=== PATIENT | female | born 1985 | race Caucasian/White ===

== ENCOUNTER 2018-08-23 23:57 | Emergency (ER) | payer OTHER ==
[~2018-08-23] VITALS: Ht 165.1 cm; Wt 98.0 kg
--- OUTSIDE RECORDS SUMMARY | ~2018-08-23 | XMS | Clinical Summary ---
Demographics + + + | Address | [address] | | | [place] [address] | + + + | Home Phone | | + + + | Preferred Language | Unknown | + + + | Marital Status | Single | + + + | Mu-Ism Affiliation | Unknown | + + + | Race | Unknown | + + + | Ethnic Group | Unknown | + + + Author + + + | Author | [facility] | | | and [place] | + + + | Organization | [facility] | | | and [place] | + + + | Address | Unknown | + + + | Phone | Unavailable | + + + Care Team Providers + +------+ + | Care Dry Paste Supervisor Name | Role | Phone | + +------+ + | Michelle Matt | PP | | | PA | | | + +------+ + Allergies Not on File Medications Not on file Active Problems Not on file Social History + +-------+ +--------+------+ | Tobacco Use | Types | Packs/Day | Years | Date | | | | | Used | | + +-------+ +--------+------+ | Never Assessed | | | | | + +-------+ +--------+------+ + + + | Sex Assigned at | Date Recorded | | | | + + + | Not on file | | + + + + + + + | Job Start Date | Occupation | Industry | + + + + | Not on file | Not on file | Not on file | + + + + + + + + | Travel History | Travel Start | Travel End | + + + + + + | No recent travel history available. | + + Plan of Treatment +--------+---------+ + + + | Date | Type | Specialty | Care Team | Description | +--------+---------+ + + + | 09/23/ | Office | | Dony Alcantar, | | | 2019 | Visit | | [address] | | | | | | [place] | | | | | | [address] | | | | | | | | +--------+---------+ + + + | 11/16/ | Office | | Guero Cobos MD | | | 2019 | Visit | | [address] | | | | | | [place] | | | | | | [address] | | | | | | | | +--------+---------+ + + + + + + + + | Health Maintenance | Due Date | Last Done | Comments | + + + + + | Vaccine: | | | | | Dtap/Tdap/Td (1 - | 6 | | | | Tdap) | | | | + + + + + | Cervical Cancer | | | | | Screening (Pap) | 7 | | | + + + + + | Vaccine: Influenza | | | | | (Season Ended) | 9 | | | + + + + + Results Not on filefrom Last 3 Months Insurance + +--------+ +--------+ +---------+--------+ | Payer | Benefi | Subscriber | Effect | Phone | Address | Type | | | t Plan | ID | alfredo | | | | | | / | | Dates | | | | | | Group | | | | | | + +--------+ +--------+ +---------+--------+ | [employer] | MODA | [id number] | | [phone] | | Medica | | MEDICAID HMO | HEALTH | | 018-Pr | 1 | | id | | | MDCD | | esent | | | | | | [place]MO [place] | | | | | | + +--------+ +--------+ +---------+--------+ | [employer] | MODA | [id number] | | [phone] | | Medica | | MEDICAID HMO | HEALTH | | 019-Pr | 1 | | id | | | MDCD | | esent | | | | | | [place]MO [place] | | | | | | + +--------+ +--------+ +---------+--------+ + +--------+ +--------+ + + | Guarantor Name | Accoun | Relation to | Date | Phone | Billing Address | | | t Type | Patient | of | | | | | | | | | | + +--------+ +--------+ + + | Giulia Trujillo | Person | Self | [birth year] | [address] | | | al/Fam | | 1985 | [phone] | [place] [address] | | | nadia | | | 0 (Home) | | + +--------+ +--------+ + + | Giulia Trujillo | Person | Self | [birth year] | [address] | | | mook/Vahe | | 1985 | [phone] | [place] [address] | | | nadia | | | 0 (Home) | | + +--------+ +--------+ + + Advance Directives Patient has advance care planning documents on file. For more information, please contact:[facility] [place] [address]"
--- OUTSIDE RECORDS SUMMARY | ~2018-08-23 | XMS | Clinical Summary ---
Demographics + + + | Address | [address] | | | [place] [address] | + + + | Home Phone | | + + + | Preferred Language | Unknown | + + + | Marital Status | Single | + + + | Druze Affiliation | Unknown | + + + | Race | Unknown | + + + | Ethnic Group | Unknown | + + + Author + + + | Author | [facility] | | | and [place] | + + + | Organization | [facility] | | | and [place] | + + + | Address | Unknown | + + + | Phone | Unavailable | + + + Care Team Providers + +------+ + | Care Healthcare Science Specialist Name | Role | Phone | + [...] [place] | | | | | | [phone] | | | | | | | | +--------+---------+ + + + | 11/16/ | Office | | Guero Cobos MD | | | 2019 | Visit | | [address] | | | | | | [place] | | | | | | [address] | | | | | | | [...] | [employer] | MODA | [id number] | | [phone] | | Medica | | MEDICAID HMO | HEALTH | | 018-Pr | 1 | | id | | | MDCD | | esent | | | | | | [place]MO [place] | | | | | | + +--------+ +--------+ +---------+--------+ | [employer] | MODA | [id number] | | [phone] | | Medica | | MEDICAID HMO [...] | 1985 | [phone] | [place] [address] | | | nadia | | | 0 (Home) | | + +--------+ +--------+ + + | Giulia Trujillo | Person | Self | [birth year] | [address] | | | mook/Vahe | | 1985 | [phone] | [place] [address] | | | nadia | | | 0 (Home) | | + +--------+ +--------+ + + Advance Directives Patient has advance care planning documents on file. For more information, please contact:[facility] [place] [address]"
[~2018-08-23 23:57] MED LIST: BENADRYL ALLERG25 MG PO; BUTALB-ACETAMI1 EACH PO; PHENTERMINE HCL30 MG PO; PREDNISONE20 MG PO; PROPRANOLOL HCL40 MG PO; RIZATRIPTAN10 MG PO
--- OUTSIDE RECORDS SUMMARY | 2018-08-24 | XMS ---
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 Mala has no Care Guidelines for this patient. Nicho VISIT COUNT (12 MO.) 1 ABDOUL Forrest TOTAL 1 NOTE: Visits indicate total known visits. ED/UCC VISIT TRACKING (12 MO.) 08/23/2018 23:57 ABDOUL [place] TYPE: Emergency COMPLAINT: - MIGRAINE INPATIENT VISIT TRACKING (12 MO.) No inpatient visits to display in this time frame [id number]
== END 2018-08-24 01:25 | disposition home or self-care (01) ==
LOC: ED 23:57
DX: R51 Headache (principal); Z90.49 Acquired absence of other specified parts of digestive tract
CPT/HCPCS: 96374; 96375; 99283-25; J1200; J1885; J2765; J7030

== ENCOUNTER 2020-05-15 05:50 | Day surgery (SDC) | payer OTHER ==
[~2020-05-15] VITALS: Ht 165.1 cm; Wt 104.5 kg
[~2020-05-15 05:50] MED LIST changes: +BOTOX100 UNITS IM; +HYDROCODON-ACE1 EA10 PO
--- NOTE | 2020-05-15 08:42 | NUR ---
PT ALERT, ORIENTED AND SUPPORTED BY HER CATALINO. PT SEEMS INFORMED, ALL QUESTIONS ASKED ANSWERED. PT STATED SHE WAS HAVING A HARD TIME STAYING AWAKE GAVE BLESSING AND WILL FOLLOW
--- NOTE | 2020-05-15 09:26 | NUR ---
LE 0815: PATIENT IS IN BED. SPOUSE IS AT BEDSIDE. MOUTH SWABS AT BEDSIDE TABLE. NO OTHER ASSISTANCE NEEDED AT THIS TIME. CALL LIGHT IS WITHIN REACH.
--- NOTE | 2020-05-15 09:27 | NUR ---
LE 0915: PATIENT STATED NO DESIRE TO VOID AT THIS TIME. MOUTH SWABS NEXT TO BEDSIDE TABLE. NO OTHER ASSISTANCE AT THIS TIME. CALL LIGHT WITHIN REACH.
[2020-05-15] MEDS ORDERED: DICLOFENAC SODI75 MG PO (11:26)
[2020-05-15] MEDS ORDERED: HYDROCODON-ACE1 EA11 PO (11:26)
--- NOTE | 2020-05-15 11:32 | NUR ---
05/15/20 1132 Soraya Srivastava 1113- PT TO PACU IN SUPINE POSITION. EYES CLOSED. DOES NOT RESPOND TO VERBAL STIMULI. BREATHING EASY AND UNLABORED. SPO2 >95% ON 6 L O2 VIA SIMPLE MASK. REPORT RECEIVED FROM SEBASTIAN 1119- PT RESPONDS TO VOICE. NODS HEAD INDICATING SHE IS COMFORTABLE. PT UNABLE TO WIGGLE TOES, PULSES 3+ AND CAP REFIL BRISK TO BOTH LOWER EXTREMITIES. BREATHING EASY AND UNLABORED. SPO2 >95%. 1129- PT TALKING WITH MD AT BEDSIDE. BREATHING EASY AND UNLAOBRED. SPO2 >95%. O2 TITRATED DOWN TO ROOM AIR. PT DENIES PAIN AND NAUSEA AT THIS TIME. CRYO CUFF APPLIED AND EXTREMITY ELEVATED.
--- NOTE | 2020-05-15 12:09 | NUR ---
PT ARRIVES TO TREATMENT ROOM FROM PACU AWAKE AND ALERT. PT DENIES ANY PAIN IN LEFT KNEE. PT ABLE TO MOVE TOES ON LEFT SIDE, UNABLE TO MOVE RIGHT LEG AT THIS TIME. PT DENIES ANY NAUSEA. SPOUSE AT BEDSIDE. DC CRITERIA EXPLAINED, SPOUSE PROVIDED PAIN PRESCRIPTION. CALL LIGHT WITHIN REACH.
--- NOTE | 2020-05-15 13:04 | NUR ---
PT IS REPORTING NO PAIN AT THIS TIME. SHE IS ABLE TO MOVE AND WIGGLE HER RIGHT LEG, SHE DOES NOT FEEL WHEN THE BOTTOM OF HER FOOT IS TOUCHED OR TOE SQUEEZED YET. SHE WOULD LIKE SOME CRACKERS. CALL LIGHT WITHIN REACH. NO ADDITIONAL NEEDS AT THIS TIME.
--- NOTE | 2020-05-15 14:07 | NUR ---
PT REPORTS FEELING IN THE BOTTOM OF HER RIGHT FOOT, STATING IT FEELS LIKE HER LEG FELL ASLEEP AND IS WAKING UP. USING A SECOND RN THE PT IS STOOD AT THE BEDSIDE FOR THE FIRST TIME, SHE ISN'T ABLE TO HOLD HER WEIGHT. SHE REPORTS THAT SHE FEELS LIKE HER LEG ISN'T STRONG ENOUGH TO SUPPORT HER. SHE IS HELPED BACK IN TO BED. SHE IS EDUCATED TO USE HER CALL LIGHT IF SHE NEEDS TO GET UP AND USE THE RESTROOM. CALL LIGHT WITHIN REACH. TOLERATING WATER AND CRACKERS. NO ADDITIONAL NEEDS AT THIS TIME.
--- NOTE | 2020-05-15 15:08 | NUR ---
PATIENT WAS ABLE TO URINATE UPON STANDING AND WAS ASSISTED TO THE BEDSIDE CAMMODE WITH THE ASSISTANCE OF TWO NURSES. SPOUSE ARRIVED WITH CRUTCHES AND WAS ABLE TO AMBULATE WITH ASSITANCE OF CRUTCHES AND STAFF TO RESTOOM. PATIENT DENIES PAIN. PATIENT STATES THE NEED TO URINATE, BLADDER SCAN IS PERFORMED BY RN.
--- NOTE | 2020-05-15 15:45 | NUR ---
LE 1500: PT REPORTS THAT SHE WOULD LIKE TO GET UP AND USE THE RESTROOM. SHE STATES THAT SHE FEELS LIKE SHE HAS TO PEE. SHE IS ASSISTED UP OOB, ONCE SHE STANDS SHE LOSES CONTROL OF HER BLADDER. SHE IS PUT ON THE BEDSIDE COMMODE WITHOUT SUCCESS. SHE IS ASSISTED TO THE BATHROOM TO SIT ON THE TOLIET, AGAIN WTIHOUT SUCCESS. THE PT IS BLADDER SCANNED FOR OVER 1L IN THE BLADDER. THE PT IS STRAIGHT CATHED FOR APPROX 1200ML'S. REPEAT BLADDER SCAN SHOWS AN EMPTY BLADDER. PT REQUESTS APPLE JUICE, WATER, AND A GRILLED CHEESE SANDWICH.
--- NOTE | 2020-05-15 16:21 | NUR ---
PATIENT IS IN BED. STATES NO DESIRE TO URINATE AT THIS TIME. WATER AND APPLE JUICE AT BED SIDE. CALL LIGHT WITHIN REACH. NO FURTHER ASSISTANCE AT THIS TIME.
--- NOTE | 2020-05-15 17:40 | NUR ---
PT ARRIVED TO THE FLOOR VIA STRETCHER TO SHORT STAY DUE TO PT NOT MEETING PARAMETERS AT THIS TIME.
--- NOTE | 2020-05-15 17:44 | NUR ---
RICKI 1710: PT IS HELPED UP OOB TO THE BATHROOM TO TRY AND USE THE RESTROOM AGAIN. SHE SITS ON THE TOLIET FOR ABOUT 20 MINUTES WITHOUT LUCK. SHE IS BLADDER SCANNED AGAIN FOR APPROXIMATELY 540ML'S. SHE REPORTS THAT HER BUTT IS STARTING TO TINGLE, SHE IS EDUCATED THAT THIS IS A GOOD THING AND SHE SHOULD BE ABLE TO VOID IN NO TIME. SINCE THE DEPARTMENT IS CLOSING, SHE IS TRANSFERRED TO MED/SURG UNTIL SHE IS ABLET TO VOID. SHE IS LEFT ON HER DS BED. REPORT IS GIVEN TO RIAN WYATT.
--- NOTE | 2020-05-15 17:58 | NUR ---
PT CALLED STATING THAT SHE HAD TO PEE. RODOLFO NAPOLES IN PTS ROOM TO DO A BLADDER SCAN TO ENSURE PT EMPTIED HER BLADDER. BLADDER SCAN SHOWED THAT PT HAD MORE THAN 700ML. PT REPORTED TO RODOLFO THAT SHE STILL DOESN'T FEEL THE URGE BUT HER FEELING IN HER BOTTOM IS RETURNING.
--- NOTE | 2020-05-15 18:15 | NUR ---
REPORT RECEIVED FROM EDMUNDO MODI. PT UP TO RESTROOM TO VOID. PT VOIDS 800ML CLEAR YELLOW URINE. BLADDER SCANNED WITH 214ML NOTED STILL IN BLADDER. CHARGE NURSE, OBEY, CLEARS PT FOR DISCHARGE WITH THIS RESIDUAL NOTED IN BLADDER.
--- NOTE | 2020-05-15 18:30 | NUR ---
PT READY FOR DISCHAGE. ICE PROVIDED FOR CRYO CUFF. CMS REMAINS INTACT TO LEFT LOWER EXTREMITY. BRACE IN PLACE PER ASSESSMENT. PT REPORTS 2/10 PAIN AND DENIES NEED FOR PAIN MEDICATION STATING "IT'S JUST A LITTLE." PT USING CRUTCHES APPROPRATILY FOR AMBULATION. DISCHAGE INSTRUCTIONS REVIEWED WITH PT AND . PT AND VERBALIZE UNDESTANDING OF INSTRUCTIONS, MEDICAITON, ACTIVTY, BRACE USE, AND FOLLOW UP. PT STATES SHE WILL BE SURE TO VOID LATER THIS EVENING AND CALL IF UNABLE TO VOID. VITAL SIGNS STABLE. IV DC'D PER PROTOCOL. GAUZE AND COBAN APPLIED. PT TRANSFERES SELF TO WHEELCHAIR USING CRUTCHES. PT WHEELED FROM MED/SURGE WITH ALL BELONGINGS, CMS INTACT, AND DISCHRAGE INSTRUCTIONS.
--- NOTE | 2020-05-16 07:34 | OR ---
[facility] [address] [place], [place] [address] Signed DATE OF OPERATION: 05/15/2020 SURGEON: Didi Thomas MD PREOPERATIVE DIAGNOSIS: Anterior cruciate ligament tear, left knee. POSTOPERATIVE DIAGNOSIS: Anterior cruciate ligament tear, left knee. PROCEDURE PERFORMED: Left knee arthroscopy with anterior cruciate ligament repair. IN HOME NANNY: None. ANESTHESIA: Spinal. BLOOD LOSS: Minimal. TOURNIQUET TIME: Zero. IMPLANTS: 4.75 SwiveLock with FiberWire. BRIEF HISTORY: Frank is a 35-year-old female who injured her knee last summer. She was seen and the MRI showed at least a partial tear of the ACL with some instability. She was initially lost to follow up and return to our office at the beginning of the year. Risks and benefits of surgery secondary to the fact that she continued to have instability and pain in her knee were discussed with her. She elected to proceed once consent was obtained. DESCRIPTION OF PROCEDURE: She was taken to the operating room after adequate anesthesia. She was placed on operating room table, all downside pressure points were well padded. The right leg was flexed, abducted, and externally rotated on a well-padded leg goodwin. The left leg was Electronically Signed By: DIDI THOMAS MD 05/16/20 0734 PATIENT NAME: FRANK MULLER OPERATIVE REPORT DATE OF : [birth year] REPORT #: [id number] PHYSICIAN: DIDI THOMAS MD PCP: JOHN MCINTOSH PAC REPORT IS CONFIDENTIAL AND NOT TO BE RELEASED WITHOUT AUTHORIZATION [facility] [address] [place], [place] [address] Signed placed in well-padded proximal thigh tourniquet and placed in leg goodwin. The portal sites were pre-injected using 0.25% Marcaine with epinephrine under an alcohol prep. The leg was then prepped and draped in a standard sterile fashion. Standard inferolateral and superolateral portals were made and the scope was introduced into the knee. ARTHROSCOPIC FINDINGS: The knee showed moderate synovitis throughout the knee with a fair amount of friability of the synovium. The patella was noted to track well. There was no chondromalacia. Medial and lateral gutters were clear. The medial and lateral compartment showed no chondromalacia and the medial and lateral meniscus were intact to both visualization and palpation using the Fisher circumferentially. The ACL was noted to be torn from its femoral attachment and was scarred slightly posteriorly. The PCL was intact. The ACL was also noted to be at a good angle with no retraction. There was excellent blood supply in the peritenon. It was then elected to go ahead with the repair as this was a type 1 tear and there was plenty of length for the ACL. Once this was decided, the stump of the ACL was cleaned off and the ACL insertion site was cleared off in terms of the soft tissue overlying the bone. The fat pad was partially excised to allow visualization. We then took the 1st FiberWire and using the labral scorpion, we were able to do a crisscrossing sandal type stitch pattern from the base of the ACL in the posterior lateral bundle proximally. The 2nd suture was placed in the anteromedial bundle and again using a Cuauhtemoc Sandal type suture configuration was brought out at the top of the ACL. The position for the anchor was then placed in the femur. Coming from the anterior medial portal with the knee flexed to 110 degrees, we placed through the awl and malleted it into place. This was followed by the . We then placed the four sutures from the ACL repair through the Swivelock and advanced it into the knee. Then with the graft under tension, the SwiveLock was impacted until it was well seated and then the implant was screwed into position securing the repair. The sutures were cut. There was excellent bleeding from the repair site at the end of the procedure. The scope was withdrawn. Portals were closed with 3-0 nylon and exam under anesthesia in the beginning showed a grade 2 Mago. The Mago was negative at the end of the procedure. The wounds were dressed with Adaptic, ABD, and Braden wrap. She was placed in a hinged knee brace and taken to the recovery room in satisfactory condition. All sponge, needle, and instrument counts were correct. Didi Thomas MD BA/MODL Electronically Signed By: DIDI THOMAS MD 05/16/20 0734 PATIENT NAME: FRANK MULLER OPERATIVE REPORT DATE OF : [birth year] REPORT #: [id number] PHYSICIAN: DIDI THOMAS MD PCP: JOHN MCINTOSH PAC REPORT IS CONFIDENTIAL AND NOT TO BE RELEASED WITHOUT AUTHORIZATION [address] [address] Signed /[id number] Copies: ~ Electronically Signed By: DIDI THOMAS MD 05/16/20 0734 PATIENT NAME: YOHANAFRANK LEE OPERATIVE REPORT DATE OF : [birth year] REPORT #: [id number] PHYSICIAN: DIDI THOMAS MD PCP: JOHN MCINTOSH PAC REPORT IS CONFIDENTIAL AND NOT TO BE RELEASED WITHOUT AUTHORIZATION
== END 2020-05-15 18:44 | disposition home or self-care (01) ==
LOC: DS 05:50 → MS 17:40 → DS 18:44
PROVIDERS: ATTEND Specialist
PROC: 0MQP4ZZ Repair Left Knee Bursa and Ligament, Percutaneous Endoscopic Approach (ICD-10-PCS; principal; 2020-05-15 06:45)
DX: S83.512A Sprain of anterior cruciate ligament of left knee, initial encounter (principal); G89.18 Other acute postprocedural pain; I10 Essential (primary) hypertension; Z91.030 Bee allergy status; Z91.018 Allergy to other foods; Z77.22 Contact with and (suspected) exposure to environmental tobacco smoke (acute) (chronic); W01.0XXD Fall on same level from slipping, tripping and stumbling without subsequent striking against object, subsequent encounter
CPT/HCPCS: 01400; 51798; 64447; 76942; A9270; C1713; J0171; J0690; J1100; J2001; J2250; J2405; J2704; J3010; J7121

== ENCOUNTER 2022-03-30 05:24 | Emergency (ER) | payer OTHER ==
[~2022-03-30] VITALS: Ht 165.1 cm; Wt 86.2 kg
[~2022-03-30 05:24] MED LIST changes: +DICLOFENAC SODI75 MG PO; +HYDROCODON-ACE1 EA11 PO; +NARATRIPTAN HCL1 MG PO
--- OUTSIDE RECORDS SUMMARY | 2022-03-30 05:28 | XMS ---
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 EAntoine VISIT COUNT (12 MO.) 1 ABDOUL [place] TOTAL 1 NOTE: Visits indicate total known visits. ED/UCC VISIT TRACKING (12 MO.) 03/30/2022 05:25 ABDOUL [place] TYPE: Emergency COMPLAINT: - VAGINAL ISSUE INPATIENT VISIT TRACKING (12 MO.) No inpatient visits to display in this time frame [id number]
[2022-03-30] MEDS ORDERED: NARATRIPTAN HC2.5 MG PO (06:40)
[2022-03-30] MEDS ORDERED: ONDANSETRON ODT8 MG PO (09:58)
[2022-03-30] MEDS ORDERED: PERCOCET 5-3251 EACH PO (09:58)
== END 2022-03-30 11:09 | disposition home or self-care (01) ==
LOC: ED 05:24
DX: O34.80 Maternal care for other abnormalities of pelvic organs, unspecified trimester (principal); N83.201 Unspecified ovarian cyst, right side; O99.891 Other specified diseases and conditions complicating pregnancy; R10.2 Pelvic and perineal pain; Z20.822 Contact with and (suspected) exposure to COVID-19; Z91.018 Allergy to other foods; Z91.030 Bee allergy status; Z88.8 Allergy status to other drugs, medicaments and biological substances
CPT/HCPCS: 36415; 76801; 76817; 80053; 83690; 84702; 84703; 85025; 87502; 96374; 96375; 96376; 99284-25; J1170; J1885; J2405; J2550; J7121; U0003

== ENCOUNTER 2022-04-14 05:55 | Day surgery (SDC) | payer OTHER ==
[~2022-04-14] VITALS: Ht 162.6 cm; Wt 93.6 kg
[~2022-04-14 05:55] MED LIST changes: +IBU600 MG PO; +NARATRIPTAN HC2.5 MG PO; +ONDANSETRON ODT8 MG PO; +PERCOCET 5-3251 EACH PO
--- NOTE | 2022-04-14 10:11 | NUR ---
04/14/22 1011 Leah Rucker 0956 PATIENT ARRIVES TO PACU UNRESPONSIVE TO PAIN. ORAL AIRWAY IN PLACE. REQUIRES RN TO HOLD JAW THURST TO MAINTAIN PATENT AIRWAY. RESP EVEN AND UNLABORED WITH INTERVENTION. MASK AT 10 LITERS, DECREASED TO 6 LITERS. 1010 PATIENT CONTINUES TO BE UNRESPONSIVE TO PAIN. ORAL AIRWAY CONTINUES TO BE IN PLACE. CONTINUES TO REQUIRES RN TO HOLD JAW THRUST TO MAINTAIN PATENT AIRWAY. RESP EVEN AND UNLABORED WITH INTERVENTION, MASK AT 6 LITERS, SATS 100%. IV IS POSITIONAL, RESTARTED SEE DOCUMENTATION.
--- NOTE | 2022-04-14 11:18 | NUR ---
PT BACK TO DAYSURGERY ROOM VERY SLEEPY, SHE RESPONDS TO VERBAL STIMULI WITH EYES CLOSED. SHE DENIES PAIN OR NAUSEA. TEMPLE PATENT DRAINING BRIGHT YELLOW URINE. WARM BLANKETS PLACED ON PT CALL LIGHT WITHIN REACH.
--- NOTE | 2022-04-14 12:01 | NUR ---
PT CONTINUES TO SLEEP, OPENS HER EYES ONLY WHEN SPOKEN TO. DENIES PAIN AND NAUSEA, 500ML OF BRIGHT YELLOW URINE EMPTIED FROM TEMPLE BAG.
--- NOTE | 2022-04-14 12:51 | NUR ---
PT AWAKE AND ALERT SHE REPORTS SHE NEEDS TO VOID EXPLAINED TO HER THAT SHE HAS TEMPLE CATH IN PLACE, SHE REQUESTED TEMPLE BE TAKEN OUT. TEMPLE WAS REMOVED 100ML OF BRIGHT YELLOW URINE IN TEMPLE BAG. PT ABLE TO WALK TO BATHROOM WITH MINIMAL ASSIST. SHE WAS ABLE TO VOID 50ML OF BRIGHT YELLOW URINE. SHE AMBULATED BACK TO ROOM WITHOUT ASSIST. PT GIVEN JELLO AND WATER TOLERATES WELL. PT TUCKED BACK INTO BED WARM BLANKETS GIVEN CALL LIGHT WITHIN REACH.
--- NOTE | 2022-04-14 13:06 | NUR ---
PT COMPLAINS OF PAIN 6-7/10 PERCOCET GIVEN
--- NOTE | 2022-04-14 13:55 | NUR ---
1330 PT AMBULATED TO BATHROOM WITHOUT ASSIST. SHE VOIDED 150ML OF BRIGHT YELLOW URINE. SHE REPORTS PAIN IS BETTER, DENIES NAUSEA. SHE IS ASKING WHEN SHE CAN GO HOME. SHE DRESSED HERSELF, DISCHARGE INSTRUCTIONS GIVEN TO PT AND BOTH VOICED UNDERSTANDING.
--- NOTE | 2022-04-16 18:45 | PATH ---
[facility] [address] [place], [place] [address] Signed SPECIMEN(S): A UTERUS, CERVIX, BILATERAL TUBES SPECIMEN(S): B LEFT OVARIAN BIOPSY SPECIMEN(S): C RIGHT OVARIAN BIOPSY SPECIMEN SOURCE: A. UTERUS, CERVIX, BILATERAL TUBES B. LEFT OVARIAN BIOPSY C. RIGHT OVARIAN BIOPSY CLINICAL HISTORY: AUB, dysmenorrhea, intramural leiomyoma of uterus, endometrial disorder. FINAL PATHOLOGIC DIAGNOSIS: A. Cervix, uterus, bilateral fallopian tubes, hysterectomy with bilateral salpingectomy: - Ectocervical and endocervical epithelia within normal limits. - Nabothian cysts. - Uterus with proliferative phase endometrium and a leiomyoma. - Adenomyosis. - Fallopian tubes within normal limits. - Paratubal cyst. B. Ovary, left, biopsy: - Benign stromal tissue with single cuboidal cell epithelial lining (see Comment). C. Ovary, right, biopsy: - Ovarian stroma with single cuboidal epithelial lining, most consistent with features seen in benign serous cystadenoma. Please correlate these findings with the clinical presentation. COMMENT (Part B): This may represent surface lining of the ovary, or if this is a cystic structure in an ovary, it may be a benign serous cystadenoma. Please correlate these findings with the clinical presentation. IVAN:arnold:llc:[email or web address] MICROSCOPIC EXAMINATION: Histologic sections of all submitted blocks are examined by light microscopy. These findings, together with the gross examination, support the pathologic diagnosis. GROSS DESCRIPTION: A. The specimen, labeled and designated "Muller, uterus, cervix, bilateral PATIENT NAME: FRANK MULLER PATHOLOGY DATE OF : [birth year] REPORT #: [id number] PHYSICIAN: DEBI KHOURY PCP: JOHN MCINTOSH PAC REPORT IS CONFIDENTIAL AND NOT TO BE RELEASED WITHOUT AUTHORIZATION [facility] [address] [place], [place] [address] Signed tubes," is received in formalin and consists of a uterus (176 g, 8.5 cm cornu to cornu, 6.7 cm superior to inferior, 4.6 cm anterior to posterior), attached cervix (3.0 cm in length x 3.1 cm in diameter) with pink-queen, smooth cervical mucosa and patent, slit-shaped os (1.4 x 0.4 cm), and two detached and undesignated fimbriated fallopian tube segments (7.0 cm in length and ranging in diameter from 0.5 to 1.1 cm, and 5.5 cm in length x 0.7 to 1.4 cm in diameter). One fallopian tube segment is arbitrarily inked blue. Both fallopian tube segments are brown-queen and are sectioned to reveal a grossly unremarkable cut surface. The fimbriae are entirely submitted. The uterine serosa is pink-queen and smooth. The cervix is sectioned to reveal a pink-queen to hemorrhagic endocervix (endocervical canal: 3.5 x 1.1 cm). Sectioning of the uterus reveals an endometrial cavity (5.3 cm superior to inferior x 3.4 cm cornu to cornu) with hemorrhagic endometrial lining that measures up to 0.3 cm in thickness. The myometrium is pink-queen and trabeculated with one white-queen, well-circumscribed intramural nodule (3.8 x 3.2 x 3.0 cm). Chief Hydroelectric Station Operator sections are submitted. Cassette Summary: (A1-A2) Fallopian tubes (A3) Cervix (A4) Endomyometrium (A5-A6) Myometrial nodule B. The specimen, labeled and designated "Ronnie, left ovarian biopsy," is received in formalin and consists of one fragment of queen-pink soft tissue (0.3 cm in greatest dimension). The specimen is submitted entirely in cassette (B1). C. The specimen, labeled and designated "Ronnie, right ovarian biopsy," is received in formalin and consists of four fragments of queen-pink soft tissue (0.3 to 0.5 cm in greatest dimension). The tissue is submitted entirely in cassette (C1). AC (under the direct supervision of a pathologist) The Gross Description was prepared using a voice recognition system. The report was reviewed for accuracy; however, sound-alike word errors, addition and/or deletions may occur. If there is any question about this report, please contact Client Services. PERFORMING LABORATORY: The technical component was performed by [facility], [address] [place] [address] (CLIA# [id number]). The professional interpretation was PATIENT NAME: FRANK MULLER PATHOLOGY DATE OF : [birth year] REPORT #: [id number] PHYSICIAN: DEBI KHOURY PCP: JOHN MCINTOSH PAC REPORT IS CONFIDENTIAL AND NOT TO BE RELEASED WITHOUT AUTHORIZATION [facility] [address] [place] [address] Signed performed by [facility], [facility], [address] [place] [address] (CLIA#: [id number]). Diagnostician: Jordin Jimenez MD Pathologist Electronically Signed 04/16/2022 Copies: ~ PATIENT NAME: FRANK MULLER CHANDAN PATHOLOGY DATE OF : [birth year] REPORT #: [id number] PHYSICIAN: DEBI KHOURY PCP: JOHN MCINTOSH PAC REPORT IS CONFIDENTIAL AND NOT TO BE RELEASED WITHOUT AUTHORIZATION
--- NOTE | 2022-04-17 06:18 | OR ---
[address] [address] Signed DATE OF OPERATION: 04/14/2022 SURGEON: Karine Dominique DO PREOPERATIVE DIAGNOSES: 1. Abnormal uterine bleeding. 2. Dysmenorrhea. 3. Fibroid uterus. 4. Endometrial abnormality. POSTOPERATIVE DIAGNOSES: 1. Abnormal uterine bleeding. 2. Dysmenorrhea. 3. Fibroid uterus. 4. Endometrial abnormality 5. Abdominal adhesions. 6. Bilateral ovarian masses. PROCEDURES PERFORMED: 1. Total laparoscopic hysterectomy. 2. Bilateral salpingectomy. 3. Lysis of adhesions for approximately 15 minutes. 4. Biopsy of bilateral ovarian masses. PUBLICITY CONSULTANT: Rosalva aCrlin DO ANESTHESIA: General. ESTIMATED BLOOD LOSS: 20 mL. SPECIMENS: 1. Uterus and cervix. 2. Bilateral fallopian tubes. 3. Bilateral ovarian masses (sent separately). DRAINS: Amaro to gravity. Electronically Signed By: KARINE DOMINIQUE DO (JD) 04/17/22 0618 PATIENT NAME: FRANK MULLER OPERATIVE REPORT DATE OF : 89 REPORT #: [id number] PHYSICIAN: KARINE DOMINIQUE DO (JD) PCP: JOHN MCINTOSH PAC REPORT IS CONFIDENTIAL AND NOT TO BE RELEASED WITHOUT AUTHORIZATION [address] [address] Signed FINDINGS: Normal external genitalia with normal clitoris, urethral meatus, bilateral Gold Bar's, and Bartholin glands. Normal perineal body and anus. Normal vagina and cervix. On laparoscopy, dense omental adhesions to the anterior abdominal wall that were taken down without difficulty. Bilateral ovarian excrescences that were biopsied and sent individually. No peritoneal studding, omental masses, thickening or other lesions noted. Large multifibroid uterus. Hemostatic at the end of the procedure with excellent apical support. On cystoscopy, normal bladder with bilateral ureteral jets. COMPLICATIONS: None. INDICATIONS: Ms. Muller is a very pleasant 37-year-old female with worsening abnormal uterine bleeding and dysmenorrhea. Ultrasound demonstrated heterogeneous myometrium with multiple fibroids. Endometrial biopsy was performed that demonstrated focal squamous morular metaplasia and her Pap was normal. The patient desired definitive treatment, total laparoscopic hysterectomy. Risks, benefits, and alternatives were discussed in detail with the patient. The patient understands and wished to proceed with the procedure. TECHNIQUE: The patient was taken to the operating room where a time-out was performed to confirm correct patient, correct procedure. General anesthesia was adequately established. The patient was prepped and draped in the dorsal lithotomy position with feet in Yellofin stirrups. ICPs were on and running. The patient received Ancef 2 g preoperatively and heparin 5000 units preoperatively. A Amaro catheter was inserted. A weighted speculum was placed and the anterior lip of the cervix was grasped with Allis clamp. The cervix was gently dilated using Hegar dilators. A [employer] uterine manipulator was placed. The surgeon's gloves were changed and attention was turned to the abdomen. Just below the umbilicus, a 3.5 cm curvilinear incision was made using a surgical scalpel after infiltration with 0.25% Marcaine with epinephrine. Skin was incised and the fascia was grasped with hemostats, elevated and entered sharply with Metzenbaum scissors. The fascial incision was extended bilaterally using Metzenbaum scissors and stay sutures of 0 Vicryl placed anterior and posterior. Peritoneum was entered bluntly and Symone operative port was placed without difficulty. Pneumoperitoneum was established and a microscope was placed. Dense omental adhesions were noted in the midline of the abdomen below the umbilicus to the upper pelvis. Assist ports were placed with a 5 mm assist port in the left lower quadrant under direct visualization without complication and an 8 mm expanding port in the right lower quadrant under direct visualization without complication. The omental adhesions were carefully taken down using the LigaSure device Electronically Signed By: KARINE HALL) DO GRISELDA 04/17/22 0618 PATIENT NAME: FRANK MULLER CHANDAN OPERATIVE REPORT DATE OF : [birth year] REPORT #: [id number] PHYSICIAN: KARINE DOMINIQUE) PCP: JOHN MCINTOSH PAC REPORT IS CONFIDENTIAL AND NOT TO BE RELEASED WITHOUT AUTHORIZATION [address] [address] Signed without complication. Attention was then turned to hysterectomy. Bilateral ovaries were noted to have cystic excrescences. No peritoneal studding, omental masses, thickening or other lesions were noted. The left fallopian tube was grasped with Wavy grasper and divided along the mesosalpinx using the LigaSure device. It was amputated at the cornu and sent to pathology for further evaluation. The left uteroovarian ligament was fulgurated and divided. The left round ligament was fulgurated and divided with excellent hemostasis. The leaves of the broad ligament were opened using LigaSure device from the midportion of the round ligament to the uterosacral ligament and following the edge of the vaginal cup across the posterior edge of the vaginal cup. The anterior leaf was taken down from the midportion around to the edge of the vaginal cup and across the anterior portion of the vaginal cup. The uterine vessels were identified, fulgurated and divided with excellent hemostasis. The process was repeated on the right side with division of the fallopian tube, mesosalpinx, fulguration division of the utero-ovarian ligament, round ligaments, and anterior and posterior leaves of the broad ligament. The right uterine vessels were identified, fulgurated and divided with excellent hemostasis. Sonicision device was used to perform colpotomy with excellent hemostasis appreciated. The cervix and uterus were delivered through the vagina and sent to pathology for further evaluation. The vagina was packed with a wet lap sponge and a surgical glove to maintain pneumoperitoneum. The surgeon's gloves were changed and attention was turned back to the abdomen and pelvis. A small amount of oozing was noted on the right anterior cervical vessels. These were fulgurated with excellent hemostasis. Colpotomy was then repaired using 0 Stratafix in a running continuous suture with careful incorporation of the uterosacral ligaments bilaterally as well as the vaginal epithelium with each bite. Excellent hemostasis and apical support was appreciated. The cuff was irrigated and found to be hemostatic. Attention was turned to the ovaries bilaterally. Sonicision device was used to carefully biopsy excrescences bilaterally and these were sent to pathology for further evaluation. Again, the ovaries were irrigated and found to be hemostatic. Pneumoperitoneum was reduced. Infraumbilical fascial incision was repaired using 0 Vicryl in a running nonlocked manner and was reinforced by ligating the stay sutures. Skin was reapproximated using 4-0 Monocryl in a subcuticular stitch with excellent hemostasis and cosmesis. Attention was then turned to cystoscopy. The Amaro catheter was removed and a 7 degree cystoscope was placed in the urethral meatus and advanced under direct visualization into the bladder. Normal bladder and bladder dome were appreciated. Bilateral ureteral jets were appreciated. The bladder was drained. Amaro was reinserted and the patient was taken to PACU in good and stable condition. Sponge, needle and instrument counts were correct x2 at the end of the procedure. Dr. Carlin was present and participated in all portions of the procedure. Electronically Signed By: KARINE DOMINIQUE DO (JD) 04/17/22 0618 PATIENT NAME: FRANK MULLER OPERATIVE REPORT DATE OF : [birth year] REPORT #: [id number] PHYSICIAN: KARINE DOMINIQUE) PCP: JOHN MCINTOSH PAC REPORT IS CONFIDENTIAL AND NOT TO BE RELEASED WITHOUT AUTHORIZATION [address] [place], [place] [address] Signed Karine Dominique DO JDAYLIN/MODL /[id number] Copies: ~ Electronically Signed By: KARINE DOMINIQUE DO (JD) 04/17/22 0618 PATIENT NAME: FRANK MULLER OPERATIVE REPORT DATE OF : [birth year] REPORT #: [id number] PHYSICIAN: KARINE DOMINIQUE (YADI) PCP: JOHN MCINTOSH PAC REPORT IS CONFIDENTIAL AND NOT TO BE RELEASED WITHOUT AUTHORIZATION
== END 2022-04-14 13:45 | disposition home or self-care (01) ==
LOC: DS 05:55 → OPS 05:55
PROVIDERS: ATTEND Obstetrics & Gynecology
PROC: 0UT74ZZ Resection of Bilateral Fallopian Tubes, Percutaneous Endoscopic Approach (ICD-10-PCS; 2022-04-14)
PROC: 0UT94ZZ Resection of Uterus, Percutaneous Endoscopic Approach (ICD-10-PCS; principal; 2022-04-14 07:30)
PROC: 0UB24ZX Excision of Bilateral Ovaries, Percutaneous Endoscopic Approach, Diagnostic (ICD-10-PCS; 2022-04-14 07:30)
DX: D25.1 Intramural leiomyoma of uterus (principal); N80.03 Adenomyosis of the uterus; N93.9 Abnormal uterine and vaginal bleeding, unspecified; N94.6 Dysmenorrhea, unspecified
CPT/HCPCS: 88305; 88307; J0330; J0690; J1100; J1644; J1885; J2250; J2405; J2550; J2704; J2765; J3010; J7121

== ENCOUNTER 2022-07-18 19:38 | Emergency (ER) | payer OTHER ==
[~2022-07-18] VITALS: Ht 162.6 cm; Wt 77.1 kg
--- OUTSIDE RECORDS SUMMARY | 2022-07-18 19:40 | XMS ---
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 Nicho VISIT COUNT (12 MO.) 2 ABDOUL Forrest TOTAL 2 NOTE: Visits indicate total known visits. ED/UCC VISIT TRACKING (12 MO.) 07/18/2022 19:39 A[facility]OUL [facility] [place] TYPE: Emergency COMPLAINT: - MIGRAINE 03/30/2022 05:25 ABDOUL [facility] OR TYPE: Emergency COMPLAINT: - VAGINAL ISSUE DIAGNOSES: - Contact with and (suspected) exposure to COVID-19 - Lower abdominal pain, unspecified - Pelvic and perineal pain - Maternal care for other abnormalities of pelvic organs, unspecified trimester - Allergy status to other drugs, medicaments and biological substances - Other specified diseases and conditions complicating - Unspecified ovarian cyst, right side - Allergy to other foods - Bee allergy status INPATIENT VISIT TRACKING (12 MO.) No inpatient visits to display in this time frame [email or web address]
== END 2022-07-18 21:29 | disposition home or self-care (01) ==
LOC: ED 19:38
DX: R51.9 Headache, unspecified (principal); Z91.030 Bee allergy status; Z88.8 Allergy status to other drugs, medicaments and biological substances; Z79.899 Other long term (current) drug therapy
CPT/HCPCS: 70450; 96374; 96375; 99284-25; J1200; J1885; J2765; J7030